=== PATIENT | male | born 1965 | race Caucasian/White ===

== ENCOUNTER → 2020-04-20 | Outpatient (CLI) | payer OTHER ==
--- NOTE | 2020-04-20 10:40 | Diagnostic Imaging Report ---
PROCEDURE: CT abdomen and pelvis without contrast. TECHNIQUE: Multiple contiguous axial images were obtained through the abdomen and pelvis without the use of intravenous contrast. Auto Exposure Controls were utilized during the CT exam to meet ALARA standards for radiation dose reduction. INDICATION: Hematuria. COMPARISON: None. FINDINGS: The heart is unremarkable. The included lung bases are clear. Calcified granulomas are noted in the lung bases. Hepatic steatosis is noted. No focal hepatic lesions are seen. The gallbladder is unremarkable. No intra-extra hepatic biliary dilation. No evidence of renal calculi or hydronephrosis. Peripelvic cysts are noted in the left kidney. The urinary bladder is mildly distended. The spleen, pancreas, and adrenal glands have a normal appearance. There is no pathologically enlarged mesenteric or retroperitoneal adenopathy. The bowel loops are nondilated. There is no free fluid or free air. A lytic focus is seen in the superior endplate of L2 with surrounding sclerosis. No acute fracture or dislocation is seen in the included osseous structures. Scattered calcified atherosclerotic plaque is seen in the aorta and iliac arteries. No evidence of aneurysm. There is no free air, loculated collection, or adenopathy in the pelvis. Bilateral fat-containing inguinal hernias are noted. IMPRESSION: 1. No evidence of renal calculi or hydronephrosis. Left-sided parapelvic cysts are noted. 2. Hepatic steatosis. 3. Lytic focus with surrounding sclerosis in the superior endplate of L2. This may represent a prominent Schmorl's node with reactive sclerosis. However, metastatic bone lesion is not completely excluded. Recommend correlation with patient history and nuclear medicine bone scan or MRI of the lumbar spine to further evaluate. Dictated by: Dictated on workstation # [id number]
== END ==
LOC: RAD 09:55
PROVIDERS: ATTEND Urology
DX: N94.89 Other specified conditions associated with female genital organs and menstrual cycle (principal); K76.0 Fatty (change of) liver, not elsewhere classified; R31.9 Hematuria, unspecified; M89.9 Disorder of bone, unspecified
CPT/HCPCS: 74176

== ENCOUNTER → 2020-04-30 | Outpatient (CLI) | payer OTHER ==
--- NOTE | 2020-04-30 15:31 | Diagnostic Imaging Report ---
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 TECHNIQUE: Anterior and posterior whole-body images were obtained 3 hours after the administration of 25.2 mCi of technetium 99m MDP. FINDINGS: Slight increased activity in the left maxilla. There is some increased uptake in a AC joints bilaterally. There is increased uptake in the knees bilaterally. There is otherwise normal uptake of isotope throughout the remainder of the axial and appendicular skeleton. This is physiologic uptake within the kidneys bilaterally with excretion into the urinary bladder. IMPRESSION: 1. Focal uptake in left maxilla, likely reflecting odontogenic disease. 2. Degenerative uptake in the knees and shoulders. 3. No abnormal activity within the L2 vertebral body to suggest metastatic disease. Dictated by: Dictated on workstation # [id number]
== END ==
LOC: CARD 11:00
PROVIDERS: ATTEND Urology
DX: S34.112A Complete lesion of L2 level of lumbar spinal cord, initial encounter (principal); M17.0 Bilateral primary osteoarthritis of knee; M19.012 Primary osteoarthritis, left shoulder; M19.011 Primary osteoarthritis, right shoulder; M27.8 Other specified diseases of jaws
CPT/HCPCS: 78306; A9503